=== PATIENT | female | born 1990 | race Caucasian/White ===

== ENCOUNTER 2018-03-19 12:10 | Emergency (ER) | payer OTHER, SELFPAY ==
[2018-03-19 12:12] VITALS: BP 120/84; PULSE 95; RESP 16; TEMP 36.6; O2SAT 100; BMI 20.7
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
== END 2018-03-19 14:50 | disposition home or self-care (01) ==
LOC: ED 14:00
PROVIDERS: Emergency Provider Emergency Medicine; Family Provider Preventive Medicine Occupational Medicine; PCP Preventive Medicine Occupational Medicine
DX: S00.83XA Contusion of other part of head, initial encounter (principal); Y04.2XXA Assault by strike against or bumped into by another person, initial encounter; Y93.9 Activity, unspecified; Y92.119 Unspecified place in children's home and orphanage as the place of occurrence of the external cause; Y99.0 Civilian activity done for income or pay
CPT/HCPCS: 70486; 99282

== ENCOUNTER 2020-07-01 15:48 | Outpatient (RCR) | payer BC, SELFPAY | END 2020-07-05 23:59 | LOC: IMMUN 15:48 | PROVIDERS: PCP Family Medicine; Visit Provider Family Medicine | DX: Z23 Encounter for immunization (principal) | CPT/HCPCS: 0011A; 0012A; 91301 ==